=== PATIENT | female | born 1995 | race African-American/Black ===

== ENCOUNTER → 2021-11-13 | Day surgery (SDC) | payer OTHER ==
[~2021-11-13] VITALS: Ht 167.6 cm; Wt 104.3 kg
[~2021-11-13] MED LIST: FERROUS SU220 MG/52 PO; NORTREL 1-35 21 EACH PO
[2021-11-13 06:58] LABS: HCG (URINE) SCREEN NEGATIVE (NEGATIVE)
[2021-11-13 07:25] LABS: BASOPHIL 0.3 % (0-2); EOSINOPHIL 0.3 % (0-5); HCT 26.8 % (37.0-47.0); HGB 7.9 g/dl (12.5-16.0); LYMPHOCYTE 20.9 % (15-48); MCH 20.4 pg (25.0-31.0); MCHC 29.5 g/dL (32.0-36.0); MCV 69.1 fL (78.0-100.0); MONOCYTE 8.3 % (0-12); MPV 9.4 fL (6.0-9.5); NEUTROPHIL 69.9 % (41-80); NRBC 0; PLT 434 K/uL (150-400); RBC 3.88 M/uL (4.20-5.40); WBC 7.1 K/uL (4.0-10.5)
== END | disposition home or self-care (01) ==
LOC: FAS 06:28
PROVIDERS: Oral & Maxillofacial Surgery
DX: K02.9 Dental caries, unspecified (principal); K01.1 Impacted teeth; D64.9 Anemia, unspecified; E66.9 Obesity, unspecified
CPT/HCPCS: 36415; 84703; 85025; 85049; J1100; J1885; J2250; J2370; J2405; J2704; J3010; J7120